=== PATIENT | male | born 1970 | race African-American/Black ===

== ENCOUNTER 2017-03-29 23:54 | Inpatient (IN) | payer MEDICAID ==
[~2017-03-29] VITALS: Ht 185.4 cm; Wt 131.0 kg
[2017-03-30] VITALS (24 sets, daily range): BP systolic 122–195; BP diastolic 54–101; PULSE 98–117; RESP 15–30; TEMP 97.7; Ht 185.4 cm; Wt 131.0 kg
[2017-03-30] MEDS ORDERED: KETOROLAC 30 MG INJ IV STA (03:26)
[2017-03-30] MEDS ORDERED: DIPHENHYDRAMINE 50 MG INJ IV ONE (03:30)
[2017-03-30] MEDS ORDERED: METHYLPREDNISOLONE 125 MG INJ IV ONE (03:30)
--- NOTE | 2017-03-30 03:50 | ERD ---
ER Documentation Chief Complaint Date/Time DATE: 03/30/17 TIME: 03:48 Chief Complaint BIB RA. FROM HOME C/O ST started tonight HPI 46-year-old male presents here in emergency department for complaints of throat discomfort started tonight, patient drank cold water, started to have the throat discomfort afterwards, denies complaining of throat pain, sharp pain as 6 /10 scale, and is accompanied with some difficulty breathing. Patient cannot remember eating something new or different. Patient denies any rash. Patient denies any fever or chills. Patient is not currently on any medication. Complaining of difficulty swallowing ROS All systems reviewed and are negative except as per history of present illness. Medications Home Meds Reported Medications [none] Unknown Strength No Conflict Check 03/30/17 Allergies Allergies: Coded Allergies: No Known Allergy (Unverified , 03/30/17) PMhx/Soc Medical and Surgical Hx: pt denies Medical Hx, pt denies Surgical Hx FmHx Family History: No coronary disease, No diabetes, No other Physical Exam Vitals Vital Signs Date Time Temp Pulse Resp B/P Pulse Ox O2 Delivery O2 Flow Rate FiO2 03/30/17 04:16 97 18 100 Nasal Cannula 2.0 03/30/17 03:34 100 Nasal Cannula 2.0 03/30/17 03:32 Nasal Cannula 2 03/30/17 03:28 95 Room Air 03/29/17 23:58 98.3 99 124 170/95 100 Physical Exam GENERAL: The patient is well developed and appropriate for usual state of health HEENT: Atraumatic. Ears: Normal tympanic membrane, no erythema or bulging. No ear canal swelling. No ear discharge. Nose: normal nasal turbinates, no erythema or swelling. Normal nasal discharge. Throat: oropharynx clear. No tonsillar swelling or tonsillar exudates. No lymphadenopathy. CHEST: Clear to auscultation bilaterally. There are no rales, wheezes or rhonchi. Noted some stridor. HEART: Regular rate and rhythm. No murmurs, clicks, rubs or gallops. No S3 or S4. ABDOMEN: Soft, nontender and nondistended. Good bowel sounds. No rebound or guarding. No gross peritonitis. No gross organomegaly or masses. No Yancey sign or McBurney point tenderness. BACK: No midline or flank tenderness. EXTREMITIES: Equal pulses bilaterally. There is no peripheral clubbing, cyanosis or edema. No focal swelling or erythema. Full range of motion. Grossly neurovascularly intact. NEURO: Alert and oriented. Cranial nerves 2-12 intact. Motor strength in all 4 extremities with 5/5 strength. Sensation grossly intact. Normal speech and gait. SKIN: There is no apparent rash or petechia. The skin is warm and dry. HEMATOLOGIC AND LYMPHATIC: There is no evidence of excessive bruising or lymphedema. No gross cervical, axillary, or inguinal lymphadenopathy. Result Diagram: 03/30/1733903/30/17339 Results 24 hrs Laboratory Tests Test 03/30/17 03:40 White Blood Count 11.110^3/ul Red Blood Count 5.2610^6/ul Hemoglobin 15.5g/dl Hematocrit 46.9% Mean Corpuscular Volume 89.2fl Mean Corpuscular Hemoglobin 29.5pg Mean Corpuscular Hemoglobin Concent 33.0g/dl Red Cell Distribution Width 11.8% Platelet Count 60473^3/UL Mean Platelet Volume 11.4fl Neutrophils % 85.5% Lymphocytes % 6.8% Monocytes % 7.2% Eosinophils % 0.0% Basophils % 0.2% Nucleated Red Blood Cells % 0.0/100WBC Neutrophils # 9.510^3/ul Lymphocytes # 0.810^3/ul Monocytes # 0.810^3/ul Eosinophils # 0.010^3/ul Basophils # 0.010^3/ul Nucleated Red Blood Cells # 0.010^3/ul Sodium Level 141mmol/L Potassium Level 4.0mmol/L Chloride Level 101mmol/L Carbon Dioxide Level 28mmol/L Anion Gap 16 Blood Urea Nitrogen 13mg/dl Creatinine 1.08mg/dl Glucose Level 129mg/dl Calcium Level 9.6mg/dl Total Bilirubin 0.8mg/dl Direct Bilirubin 0.00mg/dl Indirect Bilirubin 0.8mg/dl Aspartate Amino Transf (AST/SGOT) 28IU/L Alanine Aminotransferase (ALT/SGPT) 42IU/L Alkaline Phosphatase 55IU/L Total Protein 8.3g/dl Albumin 4.5g/dl Globulin 3.80g/dl Albumin/Globulin Ratio 1.18 Current Medications Medications (Trade) Dose Ordered Sig/Alex Route PRN Reason Start Time Stop Time Status Last Admin Dose Admin Methylprednisolone Sodium Succinate (Solu-Medrol) 125 mg ONCE ONCE IV 03/30/17 03:30 03/30/17 03:31 DC 03/30/17 03:35 Ketorolac Tromethamine (Toradol) 30 mg ONCE STAT IV 03/30/17 03:26 03/30/17 03:28 DC 03/30/17 03:35 Diphenhydramine HCl (Benadryl) 50 mg ONCE ONCE IV 03/30/17 03:30 03/30/17 03:31 DC 03/30/17 03:35 Epinephrine 0.5 ml 0.5 ml ONCE ONCE HHN 03/30/17 04:00 03/30/17 04:01 DC 03/30/17 04:15 Sodium Chloride (NS) 100 ml @ ud STK-MED ONCE .ROUTE 03/30/17 04:25 03/30/17 04:26 DC 03/30/17 04:45 Iohexol 150 ml 150 ml STK-MED ONCE .ROUTE 03/30/17 04:25 03/30/17 04:26 DC 03/30/17 04:45 Ampicillin Sodium/ Sulbactam Sodium (Unasyn 3gm/NS (Pmx)) 100 ml @ 100 mls/hr ONCE ONCE IVPB 03/30/17 04:30 03/30/17 05:48 DC 03/30/17 04:59 Epinephrine (EPINEPHrine) 0.3 mg ONCE ONCE IM 03/30/17 06:00 03/30/17 06:01 ROCEDURE: XR Chest. CLINICAL INDICATION: Shortness of breath. TECHNIQUE: AP Portable chest. COMPARISON: No pertinent prior examinations were submitted for comparison. FINDINGS: There is mild cardiomegaly. The lungs are clear. The osseous structures are unremarkable. IMPRESSION: No acute findings. RPTAT: HIKT .Elmer Galloway MD, MD Date Time Electronically viewed and signed by .Elmer Galloway MD, on 03/30/2017 05:00 .T/ CC: CUISIA,SANDIE LINO T. [employer] WORKER PROCEDURE: CT Neck with contrast CLINICAL INDICATION: Shortness of breath TECHNIQUE: CT of the neck was performed following the intravenous administration of 100 cc Isovue 300 IV Contrast. Axial images were obtained through the neck with multiplanar reformatted images generated from the axial acquired data. The administered radiation dose was CTDI vol = 11 mGy, DLP = 313 mGy-cm. COMPARISON: No pertinent prior examinations were submitted for comparison. FINDINGS: Skull/Brain: The visualized portions of the brain are grossly unremarkable.The visualized orbits are unremarkable.The visualized paranasal sinuses are well aerated.The bilateral mastoid air cells are within normal limits. Parotid glands: Unremarkable Submandibular glands: Unremarkable Thyroid gland: Unremarkable Vasculature: Unremarkable Lymph nodes: Multiple small lymph nodes are identified in the neck in levels I- V none of which are not pathologically enlarged. The lymph nodes are relatively bilateral and symmetric in distribution. Aerodigestive tract: There is extensive soft tissue within the glottis and epiglottis. This causes marked airway narrowing most prominent at the level of the vocal cords. The subglottic soft tissues and visualize trachea are without definite abnormality. There is no evidence of a drainable fluid collection or discrete mass. Other: The lung apices are unremarkable. Osseous structures: No destructive lytic or blastic osseous lesion is identified. IMPRESSION: Extensive soft tissue swelling of the epiglottis and glottis with marked airway narrowing. Findings are most likely compatible with angioedema. Infection and other causes may be considered although there felt to be less likely. No evidence of discrete mass or drainable fluid collection. No cervical adenopathy. Findings were discussed with SANDIE NAPIER at approximately 03/30/2017 5:08: 11 AM. RPTAT: HIKT .Elmer Galloway MD, MD Date Time Electronically viewed and signed by .Elmer Galloway MD, on 03/30/2017 05:13 .T/ CC: SANDIE LADD NP Procedures/MDM Medical decision-making:. Patient has upper airway swelling consistent with angioedema. I discussed this case with my attending physician, Dr. Mcrae, recommended to give IM Epinephrine 1:1000 0.3 g, also he recommended to order Unasyn to help with possible bacterial infection. Patient was transferred to ER 1 for further management. Possible ENT evaluation. Departure Diagnosis: Primary Impression: Angioedema Encounter type: initial encounter Qualified Code: T78.3XXA - Angioedema, initial encounter Condition: Fair SANDIE LADD NP March 30, 2017 03:50
[2017-03-30 03:52] LABS: ADD SCAN DIFF NO
[2017-03-30 03:57] LABS: BASOPHILS % 0.2 % (0.0-2.0); HEMATOCRIT 46.9 % (42.0-52.0); HEMOGLOBIN 15.5 g/dl (14.0-18.0); LYMPHOCYTES # 0.8 10^3/ul (0.8-2.9); LYMPHOCYTES % 6.8 % (15.0-51.0); MEAN CORPUSCULAR HEMOGLOBIN 29.5 pg (29.0-33.0); MEAN CORPUSCULAR VOLUME 89.2 fl (82.0-101.0); MEAN PLATELET VOLUME 11.4 fl (7.4-10.4); MONOCYTE # 0.8 10^3/ul (0.3-0.9); MONOCYTES % 7.2 % (0.0-11.0); NEUTROPHIL # 9.5 10^3/ul (1.6-7.5); NEUTROPHILS % 85.5 % (39.0-77.0); PLATELET COUNT 203 10^3/UL (140-415); RED BLOOD COUNT 5.26 10^6/ul (4.70-6.10); RED CELL DISTRIBUTION WIDTH 11.8 % (11.5-14.5); WHITE BLOOD COUNT 11.1 10^3/ul (4.8-10.8)
[2017-03-30] MEDS ORDERED: RACEPINEPHRINE 2.25%(NEB) 0.5 ML AMP HHN ONE ×2 (04:00→08:00)
[2017-03-30 04:13] LABS: ALBUMIN 4.5 g/dl (3.3-4.9)
[2017-03-30 04:15] LABS: CREATININE 1.08 mg/dl (0.61-1.24)
[2017-03-30 04:16] LABS: ALBUMIN/GLOBULIN RATIO 1.18; BILIRUBIN,INDIRECT 0.8 mg/dl (0-1.1); BILIRUBIN,TOTAL 0.8 mg/dl (0.2-1.3); TOTAL PROTEIN 8.3 g/dl (6.1-8.1)
[2017-03-30 04:17] LABS: CALCIUM 9.6 mg/dl (8.4-10.2)
[2017-03-30] MEDS ORDERED: IOHEXOL 300MG/ML 150 ML BTL ONE (04:25)
[2017-03-30] MEDS ORDERED: SOD CHLORIDE 0.9% 100 ML ONE (04:25)
[2017-03-30] MEDS ORDERED: AMPICILLIN/SULB 3 GM/NS (PMX) 100 ML IVPB ONE (04:30)
--- NOTE | 2017-03-30 05:35 | RADRPT ---
PROCEDURE: CT Neck with contrast CLINICAL INDICATION: Shortness of breath TECHNIQUE: CT of the neck was performed following the intravenous administration of 100 cc Isovue 300 IV Contrast. Axial images were obtained through the neck with multiplanar reformatted images gen erated from the axial acquired data. The administered radiation dose was CTDI vol = 11 mGy, DLP = 3 13 mGy-cm. COMPARISON: No pertinent prior examinations were submitted for comparison. FINDINGS: Skull/Brain: The visualized portions of the brain are grossly unremarkable.The visualized orbits are unremarkable.The visualized paranasal sinuses are well aerated.The bilateral mastoid air cells are within normal limits. Parotid glands: Unremarkable Submandibular glands: Unremarkable Thyroid gland: Unremarkable Vasculature: Unremarkable Lymph nodes: Multiple small lymph nodes are identified in the neck in levels I-V none of which are n ot pathologically enlarged. The lymph nodes are relatively bilateral and symmetric in distribution. Aerodigestive tract: There is extensive soft tissue within the glottis and epiglottis. This causes m arked airway narrowing most prominent at the level of the vocal cords. The subglottic soft tissues and visualize trachea are without definite abnormality. There is no evidence of a drainable fluid co llection or discrete mass. Other: The lung apices are unremarkable. Osseous structures: No destructive lytic or blastic osseous lesion is identified. IMPRESSION: Extensive soft tissue swelling of the epiglottis and glottis with marked airway narrowing. Findings are most likely compatible with angioedema. Infection and other causes may be considered although t here felt to be less likely. No evidence of discrete mass or drainable fluid collection. No cervical adenopathy. Findings were discussed with SANDIE NAPIER at approximately 03/30/2017 5:08:11 AM. RPTAT: HIKT .Elmer Galloway MD, Date Time Electronically viewed and signed by .Elmer Galloway MD, MD on 03/30/2017 05:13 .T/
--- NOTE | 2017-03-30 05:35 | RADRPT ---
PROCEDURE: XR Chest. CLINICAL INDICATION: Shortness of breath. TECHNIQUE: AP Portable chest. COMPARISON: No pertinent prior examinations were submitted for comparison. FINDINGS: There is mild cardiomegaly. The lungs are clear. The osseous structures are unremarkable. IMPRESSION: No acute findings. RPTAT: HIKT .Elmer Galloway MD, MD Date Time Electronically viewed and signed by .Elmer Galloway MD, MD on 03/30/2017 05:00 .T/
[2017-03-30] MEDS ORDERED: EPINEPHrine 1 MG INJ IM ONE (06:00)
--- NOTE | 2017-03-30 06:25 | QN ---
Documentation Comment The patient was signed out to me by the overnight doctor Dr. Mcrae. He had already spoken with the ENT doctor marketing operations consultant Dr. Foy. Dr. Foy will consult on the patient. I evaluated the patient myself. He does have inspiratory stridor but he is able to protect his own airway at this time and is able to communicate with me by speaking. The patient said that he was having some trouble swallowing. He does have an elevated blood pressure of 200 systolic and therefore the patient will be given labetalol 20 mg IV. I also ordered Decadron 10 mg IV as the patient had been given Solu-Medrol earlier. The patient will be admitted to the intensive care unit for airway monitoring. MATT HOSKINS MD March 30, 2017 06:25
[2017-03-30] MEDS ORDERED: PARACETAMOL PO (06:26)
[2017-03-30] MEDS ORDERED: LABETALOL HCL 20MG INJ IV ONE ×2 (06:30→07:30)
[2017-03-30] MEDS ORDERED: DEXAMETHASONE 10 MG/ML 1 ML INJ IV ONE (06:30)
[2017-03-30] MEDS ORDERED: morphine 2 MG INJ IV PRN (09:30)
[2017-03-30] MEDS ORDERED: LORAZEPAM 2 MG INJ IV PRN (09:30)
[2017-03-30] MEDS ORDERED: ONDANSETRON 4 MG INJ IV PRN (09:30)
[2017-03-30] MEDS ORDERED: hydrALAzine 20 MG INJ IV PRN ×2 (09:30→18:00)
[2017-03-30] MEDS ORDERED: NACL 0.9% 3 ML SYG IV SCH (09:30)
[2017-03-30] MEDS: DEXTROSE 5%-0.45% NACL 1,000 ML IV SCH ×2 (11:14→20:43)
[2017-03-30] MEDS: DIPHENHYDRAMINE 50 MG INJ IV SCH ×2 (11:23→20:12)
[2017-03-30 12:01] LABS: ADD SCAN DIFF NO
[2017-03-30 12:12] LABS: ABNORMAL IP MESSAGE 1; BASOPHILS % 0.1 % (0.0-2.0); HEMATOCRIT 46.2 % (42.0-52.0); LYMPHOCYTES # 0.4 10^3/ul (0.8-2.9); LYMPHOCYTES % 1.9 % (15.0-51.0); MEAN CORPUSCULAR HEMOGLOBIN 28.9 pg (29.0-33.0); MEAN CORPUSCULAR HGB CONC 32.5 g/dl (32.0-37.0); MEAN PLATELET VOLUME 11.4 fl (7.4-10.4); MONOCYTE # 0.8 10^3/ul (0.3-0.9); MONOCYTES % 3.9 % (0.0-11.0); NEUTROPHIL # 18.1 10^3/ul (1.6-7.5); PLATELET COUNT 214 10^3/UL (140-415); RED BLOOD COUNT 5.19 10^6/ul (4.70-6.10); RED CELL DISTRIBUTION WIDTH 11.9 % (11.5-14.5); WHITE BLOOD COUNT 19.5 10^3/ul (4.8-10.8)
[2017-03-30] MEDS: FAMOTIDINE 20 MG INJ IV SCH ×2 (12:15→20:12)
[2017-03-30 12:22] LABS: INR 1.01; PROTIME 13.3 Sec (12.2-14.2)
[2017-03-30 12:26] LABS: ALBUMIN 4.4 g/dl (3.3-4.9); ALBUMIN/GLOBULIN RATIO 1.22; CALCIUM 9.7 mg/dl (8.4-10.2); CREATININE 1.05 mg/dl (0.61-1.24); MAGNESIUM 1.4 mg/dl (1.7-2.5); PHOSPHORUS 3.8 mg/dl (2.5-4.9); POTASSIUM 4.7 mmol/L (3.5-5.1)
[2017-03-30] MEDS ORDERED: LEVALBUTEROL (NEB) 0.63 MG/3 ML AMP HHN SCH (14:00)
[2017-03-30] MEDS: AMPICILLIN/SULB 3 GM/NS (PMX) 100 ML IVPB SCH ×3 (14:01→23:34)
--- NOTE | 2017-03-30 14:24 | RADRPT ---
Vent Rate: 102 bpm RR Interval: 0 msec CA Interval: 172 msec QRS Duration: 94 msec QT Interval: 368 msec QTC Interval: 479 msec P-R-T [place]: 59 - 62 - -50 degrees Sinus tachycardia T wave abnormality, consider inferior ischemia Abnormal ECG Electronically Signed By: Dennis Jimenez [id number]
[2017-03-30] MEDS: DEXAMETHASONE 10 MG/ML 1 ML INJ IV SCH ×3 (14:55→21:23)
[2017-03-30] MEDS ORDERED: MAGNESIUM SULFATE 3 GM in SOD CHLORIDE 0.9% 100 ML IVPB ONE (16:00)
[2017-03-30] MEDS ORDERED: ENALAPRILAT 1.25 MG INJ IV PRN (18:00)
[2017-03-31] VITALS (22 sets, daily range): BP systolic 111–156; BP diastolic 58–95; PULSE 72–112; RESP 14–32
[2017-03-31] MEDS: DEXAMETHASONE 10 MG/ML 1 ML INJ IV SCH ×4 (04:04→21:01)
[2017-03-31] MEDS: DEXTROSE 5%-0.45% NACL 1,000 ML IV SCH ×2 (05:48→16:59)
[2017-03-31] MEDS: AMPICILLIN/SULB 3 GM/NS (PMX) 100 ML IVPB SCH ×4 (05:48→23:58)
--- NOTE | 2017-03-31 06:33 | HP ---
DATE OF ADMISSION: 03/30/2017 TIME OF EVALUATION: 11:00 a.m. REASON FOR ADMISSION: Sore throat and dysphagia. CONSULTATIONS: 1. Dr. Jean Pierre Bautista, Pulmonary. 2. Dr. Cecilia Rosales, ENT. HISTORY OF PRESENT ILLNESS: This is a 46-year-old old male who denied any significant past medical history, who came to the emergency room with a chief complaint of sore throat and dysphagia. The patient started having sore throat from 7:00 p.m. on 03/27/2017. The patient took some acetaminophen tablets and he drank some cold water. The patient started having difficulty with swallowing and difficulty with breathing afterwards. The patient denied eating anything unusual. The patient denied any insect bites. The patient started also feeling short of breath. The patient denied any skin rashes. The patient denies using any VERENICE inhibitors or ARBs. The patient verbalized that he has used acetaminophen before without any significant problems. The patient denied any family history of angioedema. The patient denied any fevers. The patient denied any prior history of tonsillitis or adenoiditis. The patient verbalized that he and his family members are loud snorers. In the emergency room, the patient underwent a CT scan of the neck with contrast that showed extensive soft tissue swelling of the epiglottis and glottis with marked airway narrowing with findings compatible with angioedema. The CT was negative for any discrete mass or drainable fluid collection. There was no cervical lymphadenopathy. The patient had minimal leukocytosis. The patient has a neutrophil count of 85.5%. The patient was treated with IV Solu- Medrol, IV Decadron, racemic epinephrine and IV Unasyn in the emergency room. The patient was also noticed to have elevated blood pressure and tachycardia. The patient was given IV labetalol with improvement in the patient's blood pressure. PAST MEDICAL HISTORY: Denies. PAST SURGICAL HISTORY: Denies. HOME MEDICATIONS: None. ALLERGIES: NO KNOWN DRUG ALLERGIES. SOCIAL HISTORY: The patient lives by himself. Denied any history of tobacco, alcohol or illicit drug use. The patient has been in the [place] since November of 2015. FAMILY HISTORY: Negative for any CAD, diabetes or high blood pressure as per the patient. REVIEW OF SYSTEMS: A 12-point review of systems was negative. REVIEW OF SYSTEMS: Negative other than what is mentioned in history of present illness. PHYSICAL EXAMINATION: VITAL SIGNS: Temperature 97, Pulse 104, respiratory rate 26, blood pressure 156 /71, oxygen saturation 100% on nasal cannula. GENERAL: This is an obese -[place] male lying in bed in mild to moderate respiratory distress. HEENT: Head normocephalic and atraumatic. Eyes: Anicteric sclerae. Conjunctivae clear. ENT: Nasal septum is midline. Oral mucosa is dry. Tongue midline. Unable to visualize pharynx. NECK: Supple. No palpable lymph nodes. RESPIRATORY: Stridor. Bilateral diminished breath sounds. Use of accessory muscles of respiration. CARDIAC: S1, S2, heard. Sinus tachycardia. GASTROINTESTINAL: Abdomen soft, nontender and nondistended. Bowel sounds positive in all 4 quadrants. GENITOURINARY: Deferred. EXTREMITIES: No cyanosis, no clubbing, no edema. Peripheral pulses palpable. NEUROLOGIC: The patient is awake, alert and oriented. Moves all 4 extremities. No focal deficits, has difficulty in talking because of underlying angioedema. LABORATORY AND DIAGNOSTIC DATA: WBC 11.1, hemoglobin 15.5, hematocrit 46.9, platelet count 203, neutrophils 85.5, phosphorus 6.8. Sodium 141, potassium 4.0 , chloride 101, carbon dioxide 28, anion gap 16, BUN 13, creatinine 1.0, glucose 129, calcium 9.6, AST 28, ALT 42, alkaline phosphatase 55, albumin 4.5. Chest x-ray: No acute intrathoracic findings. Soft tissue neck CT. Extensive soft tissue swelling of the epiglottis and glottis with marked airway narrowing. Findings are most likely compatible with angioedema. No evidence of discrete mass or drainable fluid collection. No cervical adenopathy. IMPRESSION: This is a 46-year-old male with no significant past medical history who came to the emergency room with chief complaint of sore throat, dysphagia and dysphonia was found to have evidence of inadequate upper airway, including swelling of the epiglottis and glottis, who was admitted here for further treatment and evaluation. ASSESSMENT AND PLAN: 1. Acute upper airway obstruction, probably angioedema with swollen epiglottis and glottis. The patient will be continued on a tapering dose of IV Decadron. The patient will also be started on histamine 1 and histamine 2 blockade. The etiology of this upper airway obstruction is unclear. ENT consult has been obtained. The patient denied any use of VERENICE inhibitors or family history of any angioedema. The patient will also be started on inhaled bronchodilators. Pulmonary consult will also be called. 2. Hypertension. The patient denies any history of essential hypertension. The patient will be started on p.r.n. antihypertensives for any systolic blood pressure readings greater than 160 mmHg. Plan. The patient will be admitted to inpatient intensive care unit. The patient will be kept n.p.o. The patient will be started on deep venous thrombosis prophylaxis and gastrointestinal prophylaxis. The patient will remain a full code. Activities will be bed rest. The patient will be started on IV fluids. The rest of the patient's management will be based on the clinical course, the results of the diagnostic studies, and input from the consultants. Based on the patient's clinical presentation, he most probably requires at least 2 midnights' stay for further management and evaluation of his clinical presentation. The case and management of this patient was fully discussed with Dr. Hickman. ANISH HICKMAN MD, AM/DONTAE Conf#: [id number] DID#: [id number]
[2017-03-31 06:44] LABS: ADD SCAN DIFF NO
[2017-03-31 06:52] LABS: BASOPHILS % 0.1 % (0.0-2.0); HEMATOCRIT 42.1 % (42.0-52.0); HEMOGLOBIN 13.8 g/dl (14.0-18.0); LYMPHOCYTES # 0.6 10^3/ul (0.8-2.9); LYMPHOCYTES % 3.3 % (15.0-51.0); MEAN CORPUSCULAR HEMOGLOBIN 29.3 pg (29.0-33.0); MEAN CORPUSCULAR HGB CONC 32.8 g/dl (32.0-37.0); MEAN CORPUSCULAR VOLUME 89.4 fl (82.0-101.0); MEAN PLATELET VOLUME 11.4 fl (7.4-10.4); MONOCYTE # 0.7 10^3/ul (0.3-0.9); NEUTROPHIL # 16.9 10^3/ul (1.6-7.5); PLATELET COUNT 211 10^3/UL (140-415); RED BLOOD COUNT 4.71 10^6/ul (4.70-6.10); RED CELL DISTRIBUTION WIDTH 12.1 % (11.5-14.5); WHITE BLOOD COUNT 18.3 10^3/ul (4.8-10.8)
[2017-03-31 07:52] LABS: CHOL/HDL RATIO 3.8 RATIO; MAGNESIUM 2.3 mg/dl (1.7-2.5); PHOSPHORUS 4.5 mg/dl (2.5-4.9)
[2017-03-31 07:53] LABS: ALBUMIN 3.7 g/dl (3.3-4.9); BILIRUBIN,INDIRECT 0.9 mg/dl (0-1.1); BILIRUBIN,TOTAL 0.9 mg/dl (0.2-1.3); CALCIUM 8.9 mg/dl (8.4-10.2); CREATININE 1.11 mg/dl (0.61-1.24); POTASSIUM 4.5 mmol/L (3.5-5.1); TOTAL PROTEIN 7.4 g/dl (6.1-8.1)
--- NOTE | 2017-03-31 09:29 | PN ---
Date/Time of Note Date/Time of Note DATE: 03/31/17 TIME: 09:21 Assessment/Plan VTE Prophylaxis VTE Prophylaxis Intervention: SCD's Lines/Catheters [facility] Peripheral IV Urinary Cath still in place: No Assessment/Plan Assessment/Plan 1. Acute upper airway obstruction, probably angioedema with swollen epiglottis and glottis: improving * continue steroids / abx / NPO / ICU monitor / rapid strep 2. Hypertension * improved , PRN hydralazine for now / oral meds once on a diet 3. Leucocytosis: steroids induced/ monitor Further evaluation and treatment will be based on clinical course Full discussion with care team done. All questions Answered Please also see orders. Subjective 24 Hr Interval Summary Free Text/Dictation Patient seen and examined. feels much better still reporting sore throat Exam/Review of Systems Vital Signs Vitals Vital Signs Date Time Temp Pulse Resp B/P Pulse Ox O2 Delivery O2 Flow Rate FiO2 03/31/17 08:00 Nasal Cannula 2.0 03/31/17 08:00 98.4 94 26 149/67 99 Intake and Output 03/30/17 03/30/17 03/31/17 15:00 23:00 07:00 Intake Total 400 ml 1005.993 ml 1300 ml Output Total 400 ml 750 ml 300 ml Balance 0 ml 255.993 ml 1000 ml Exam GENERAL: This is an obese -[place] male lying in bed in noo distress. HEENT: Head normocephalic and atraumatic. Eyes: Anicteric sclerae. Conjunctivae clear. ENT: Nasal septum is midline. Oral mucosa is dry. Tongue midline. Unable to visualize pharynx. NECK: Supple. No palpable lymph nodes. RESPIRATORY: No more stridor, diminshed breath sounds CARDIAC: S1, S2, heard. no murmurs GASTROINTESTINAL: Abdomen soft, nontender and nondistended. Bowel sounds positive in all 4 quadrants. GENITOURINARY: Deferred. EXTREMITIES: No cyanosis, no clubbing, no edema. Peripheral pulses palpable. NEUROLOGIC: The patient is awake, alert and oriented. Moves all 4 extremities. No focal deficits, has difficulty in talking because of underlying angioedema. Results Result Diagram: 03/31/17 0620 03/31/17 0620 Results 24 hrs Laboratory Tests Test 03/30/17 11:53 03/31/17 06:20 White Blood Count 19.5 #H 18.3 H Red Blood Count 5.19 4.71 Hemoglobin 15.0 13.8 L Hematocrit 46.2 42.1 Mean Corpuscular Volume 89.0 89.4 Mean Corpuscular Hemoglobin 28.9 L 29.3 Mean Corpuscular Hemoglobin Concent 32.5 32.8 Red Cell Distribution Width 11.9 12.1 Platelet Count 214 211 Mean Platelet Volume 11.4 H 11.4 H Neutrophils % 93.0 H 92.0 H Lymphocytes % 1.9 L 3.3 L Monocytes % 3.9 4.0 Eosinophils % 0.0 0.0 Basophils % 0.1 0.1 Nucleated Red Blood Cells % 0.0 0.0 Neutrophils # 18.1 H 16.9 H Lymphocytes # 0.4 L 0.6 L Monocytes # 0.8 0.7 Eosinophils # 0.0 0.0 Basophils # 0.0 0.0 Nucleated Red Blood Cells # 0.0 0.0 Erythrocyte Sedimentation Rate 7 Prothrombin Time 13.3 Prothrombin Time Ratio 1.0 INR International Normalized Ratio 1.01 Activated Partial Thromboplast Time 28.0 Sodium Level 137 138 Potassium Level 4.7 4.5 Chloride Level 101 102 Carbon Dioxide Level 29 30 Anion Gap 12 11 Blood Urea Nitrogen 12 21 H Creatinine 1.05 1.11 Glucose Level 149 140 Hemoglobin A1c 5.0 Calcium Level 9.7 8.9 Phosphorus Level 3.8 4.5 Magnesium Level 1.4 L 2.3 Total Bilirubin 1.0 0.9 Direct Bilirubin 0.00 0.00 Indirect Bilirubin 1.0 0.9 Aspartate Amino Transf (AST/SGOT) 24 18 Alanine Aminotransferase (ALT/SGPT) 43 35 Alkaline Phosphatase 43 41 L C-Reactive Protein 0.9 Total Protein 8.0 7.4 Albumin 4.4 3.7 Globulin 3.60 H 3.70 H Albumin/Globulin Ratio 1.22 1.00 Triglycerides Level 50 Cholesterol Level 163 LDL Cholesterol, Calculated 111 HDL Cholesterol 42 Cholesterol/HDL Ratio 3.8 Medications Medications Current Medications Lorazepam (Ativan) 0.5 mg Q6H PRN IV ANXIETY; Start 03/30/17 at 09:30 Ondansetron HCl (Zofran Inj) 4 mg Q6H PRN IV NAUSEA AND/OR VOMITING; Start at 09:30 Morphine Sulfate (morphine) 2 mg Q4H PRN IV PAIN LEVEL 7-10 Last administered on 03/30/17 11:16; Admin Dose 2 MG; Start 03/30/17 at 09:30 Dexamethasone 10 mg 10 mg Q6H IV Last administered on 03/31/17 04:04; Admin Dose 10 MG; Start 03/30/17 at 09:30 Ampicillin Sodium/ Sulbactam Sodium (Unasyn 3gm/NS (Pmx)) 100 ml @ 100 mls/hr Q6 IVPB Last administered on 03/31/17 05:48; Admin Dose 100 MLS/HR; Start at 12:00 Famotidine (Pepcid Iv) 20 mg BID IV Last administered on 03/30/17 20:12; Admin Dose 20 MG; Start 03/30/17 at 10:00 Diphenhydramine HCl 25 mg 25 mg BID IV Last administered on 03/30/17 20:12; Admin Dose 25 MG; Start 03/30/17 at 10:00 Dextrose/Sodium Chloride (D5-1/2ns) 1,000 ml @ 100 mls/hr Q10H IV Last administered on 03/31/17 05:48; Admin Dose 100 MLS/HR; Start 03/30/17 at 10:30 Hydralazine HCl (Apresoline) 10 mg Q4H PRN IV SBP greather than 160 Last administered on 03/30/17 18:06; Admin Dose 10 MG; Start 03/30/17 at 18:00 Enalaprilat (Vasotec Iv) 1.25 mg Q4H PRN IV SBP greather than 160; Start at 18:00 Procedures Procedures PROCEDURE: CT Neck with contrast CLINICAL INDICATION: Shortness of breath TECHNIQUE: CT of the neck was performed following the intravenous administration of 100 cc Isovue 300 IV Contrast. Axial images were obtained through the neck with multiplanar reformatted images generated from the axial acquired data. The administered radiation dose was CTDI vol = 11 mGy, DLP = 313 mGy-cm. COMPARISON: No pertinent prior examinations were submitted for comparison. FINDINGS: Skull/Brain: The visualized portions of the brain are grossly unremarkable.The visualized orbits are unremarkable.The visualized paranasal sinuses are well aerated.The bilateral mastoid air cells are within normal limits. Parotid glands: Unremarkable Submandibular glands: Unremarkable Thyroid gland: Unremarkable Vasculature: Unremarkable Lymph nodes: Multiple small lymph nodes are identified in the neck in levels I- V none of which are not pathologically enlarged. The lymph nodes are relatively bilateral and symmetric in distribution. Aerodigestive tract: There is extensive soft tissue within the glottis and epiglottis. This causes marked airway narrowing most prominent at the level of the vocal cords. The subglottic soft tissues and visualize trachea are without definite abnormality. There is no evidence of a drainable fluid collection or discrete mass. Other: The lung apices are unremarkable. Osseous structures: No destructive lytic or blastic osseous lesion is identified. IMPRESSION: Extensive soft tissue swelling of the epiglottis and glottis with marked airway narrowing. Findings are most likely compatible with angioedema. Infection and other causes may be considered although there felt to be less likely. No evidence of discrete mass or drainable fluid collection. No cervical adenopathy. Findings were discussed with SANDIE NAPIER at approximately 03/30/2017 5:08: 11 AM. RPTAT: HIKT .Elmer Galloway MD, Date Time Electronically viewed and signed by .Elmer Galloway MD, on 03/30/2017 05:13 .T/ CC: SANDIE LADD [employer] [facility] March 31, 2017 09:29
[2017-03-31] MEDS: DIPHENHYDRAMINE 50 MG INJ IV SCH ×2 (09:38→21:01)
[2017-03-31] MEDS: FAMOTIDINE 20 MG INJ IV SCH ×2 (09:38→21:01)
--- NOTE | 2017-03-31 17:03 | CONS ---
DATE OF ADMISSION: 03/30/2017 DATE OF CONSULTATION: 03/31/2017 TYPE OF CONSULTATION: Pulmonary REASON FOR CONSULTATION: Shortness of breath. Thank you, Dr. Saldivar, for this consultation. HISTORY OF PRESENT ILLNESS: This is a 46-year-old gentleman who presents with a 2-day history of in creasing neck swelling, difficulty swallowing, increasing shortness of breath, [facility], found to have acute glottitis and epiglottitis on CT of the chest, concerning for possib le airway compromise. The patient was subsequently admitted to the intensive care unit for further monitoring. ENT evaluation was performed and demonstrated significant neck swelling. The patient w as kept n.p.o., commenced on steroids. This morning his breathing has significantly improved. PAST MEDICAL HISTORY: . MEDICATIONS: Per chart. ALLERGIES: NONE. SOCIAL HISTORY: Nonsmoker, no alcohol, no history of drug use. FAMILY HISTORY: Noncontributory. REVIEW OF SYSTEMS: A 12-point review of systems negative other than that mentioned above. PHYSICAL EXAMINATION: GENERAL: Well-nourished, well-developed gentleman, comfortable at rest, no acute distress. VITAL SIGNS: Currently afebrile, pulse is 76, blood pressure 148/70, O2 saturation 97% on room air. NECK: Supple. No JVD or lymphadenopathy. CARDIAC: S1, S2, no added sounds or murmurs. CHEST: Diminished air entry bilaterally. ABDOMEN: Soft, nontender. No guarding or rebound. EXTREMITIES: No cyanosis, clubbing, edema. NEUROLOGIC: Grossly intact. No focal deficits. LABORATORY DATA: White count 18.3, hemoglobin 13.8, platelets of 211. BUN 21, creatinine 1.11. IN R 1.01. IMAGING: Chest x-ray was unremarkable. CT of the neck as described above. IMPRESSION AND PLAN: Acute epiglottitis and glottitis with concern for airway compromise, now clini shanta improved with the addition of steroids and antibiotics. The patient to continue on both Decad jeff and Augmentin for now until cleared by ENT, which I anticipate should happen tomorrow. Dictated By: OBED MCALLISTER MD SV/DONTAE Conf#: [id number] DID#: [id number] CC: JUSTINA OWENS;*EndCC*
[2017-04-01] VITALS (24 sets, daily range): BP systolic 109–155; BP diastolic 57–99; PULSE 66–106; RESP 12–32
[2017-04-01] MEDS: DEXTROSE 5%-0.45% NACL 1,000 ML IV SCH ×3 (02:30→15:15)
[2017-04-01] MEDS: DEXAMETHASONE 10 MG/ML 1 ML INJ IV SCH ×4 (03:20→20:55)
[2017-04-01 05:15] LABS: ADD SCAN DIFF NO
[2017-04-01 05:23] LABS: BASOPHILS % 0.1 % (0.0-2.0); HEMATOCRIT 45.7 % (42.0-52.0); HEMOGLOBIN 14.4 g/dl (14.0-18.0); LYMPHOCYTES # 0.6 10^3/ul (0.8-2.9); LYMPHOCYTES % 4.3 % (15.0-51.0); MEAN CORPUSCULAR HEMOGLOBIN 28.9 pg (29.0-33.0); MEAN CORPUSCULAR HGB CONC 31.5 g/dl (32.0-37.0); MEAN CORPUSCULAR VOLUME 91.6 fl (82.0-101.0); MEAN PLATELET VOLUME 11.3 fl (7.4-10.4); MONOCYTE # 0.6 10^3/ul (0.3-0.9); MONOCYTES % 4.1 % (0.0-11.0); NEUTROPHIL # 13.2 10^3/ul (1.6-7.5); NEUTROPHILS % 90.9 % (39.0-77.0); PLATELET COUNT 222 10^3/UL (140-415); RED BLOOD COUNT 4.99 10^6/ul (4.70-6.10); RED CELL DISTRIBUTION WIDTH 12.3 % (11.5-14.5); WHITE BLOOD COUNT 14.6 10^3/ul (4.8-10.8)
[2017-04-01 05:47] LABS: POTASSIUM 4.9 mmol/L (3.5-5.1)
[2017-04-01 05:49] LABS: CREATININE 1.26 mg/dl (0.61-1.24)
[2017-04-01 05:50] LABS: CALCIUM 8.8 mg/dl (8.4-10.2); CHOL/HDL RATIO 5.2 RATIO
[2017-04-01] MEDS: AMPICILLIN/SULB 3 GM/NS (PMX) 100 ML IVPB SCH ×3 (06:05→18:16)
[2017-04-01] MEDS: FAMOTIDINE 20 MG INJ IV SCH ×2 (08:53→20:55)
[2017-04-01] MEDS: DIPHENHYDRAMINE 50 MG INJ IV SCH ×2 (08:53→20:55)
--- NOTE | 2017-04-01 09:50 | CONS ---
Date/Time of Note Date/Time of Note DATE: 04/01/17 TIME: 09:48 Consult Date/Type/Reason Admit Date/Time March 30, 2017 at 07:07 Initial Consult Date Type of Consultation: Pulmonary ICU Subjective Patient states he is feeling a little better today but having blood-tinged sputum no chest pain no palpitations. Objective Vital Signs Date Time Temp Pulse Resp B/P Pulse Ox O2 Delivery O2 Flow Rate FiO2 04/01/17 08:00 84 04/01/17 06:00 12 124/82 98 Nasal Cannula 04/01/17 05:00 98.7 04/01/17 02:22 2.0 27 Intake and Output 03/31/17 03/31/17 04/01/17 15:00 23:00 07:00 Intake Total 1000 ml 700 ml 900 ml Output Total 600 ml 1470 ml 950 ml Balance 400 ml -770 ml -50 ml Exam PHYSICAL EXAMINATION: GENERAL: Well-nourished, well-developed gentleman, comfortable at rest, no acute distress. VITAL SIGNS: As above NECK: Supple. No JVD or lymphadenopathy. CARDIAC: S1, S2, no added sounds or murmurs. CHEST: Diminished air entry bilaterally. ABDOMEN: Soft, nontender. No guarding or rebound. EXTREMITIES: No cyanosis, clubbing, edema. NEUROLOGIC: Grossly intact. No focal deficits. Results/Medications Result Diagram: 04/01/17 0450 04/01/[address] chest No significant abnormalities in the lung parenchyma noted bibasilar mild atelectasis significant upper airway edema Laboratory Tests Test 04/01/17 04:50 White Blood Count 14.6 #H Red Blood Count 4.99 Hemoglobin 14.4 Hematocrit 45.7 Mean Corpuscular Volume 91.6 Mean Corpuscular Hemoglobin 28.9 L Mean Corpuscular Hemoglobin Concent 31.5 L Red Cell Distribution Width 12.3 Platelet Count 222 Mean Platelet Volume 11.3 H Neutrophils % 90.9 H Lymphocytes % 4.3 L Monocytes % 4.1 Eosinophils % 0.0 Basophils % 0.1 Nucleated Red Blood Cells % 0.0 Neutrophils # 13.2 H Lymphocytes # 0.6 L Monocytes # 0.6 Eosinophils # 0.0 Basophils # 0.0 Nucleated Red Blood Cells # 0.0 Sodium Level 141 Potassium Level 4.9 Chloride Level 100 Carbon Dioxide Level 31 Anion Gap 15 Blood Urea Nitrogen 26 H Creatinine 1.26 H Glucose Level 134 Hemoglobin A1c 4.9 Calcium Level 8.8 Triglycerides Level 92 Cholesterol Level 179 LDL Cholesterol, Calculated 127 HDL Cholesterol 34 Cholesterol/HDL Ratio 5.2 Medications Current Medications Lorazepam (Ativan) 0.5 mg Q6H PRN IV ANXIETY; Start 03/30/17 at 09:30 Ondansetron HCl (Zofran Inj) 4 mg Q6H PRN IV NAUSEA AND/OR VOMITING Last administered on 03/31/17 16:59; Admin Dose 4 MG; Start 03/30/17 at 09:30 Morphine Sulfate (morphine) 2 mg Q4H PRN IV PAIN LEVEL 7-10 Last administered on 03/30/17 11:16; Admin Dose 2 MG; Start 03/30/17 at 09:30 Dexamethasone 10 mg 10 mg Q6H IV Last administered on 04/01/17 08:53; Admin Dose 10 MG; Start 03/30/17 at 09:30 Ampicillin Sodium/ Sulbactam Sodium (Unasyn 3gm/NS (Pmx)) 100 ml @ 100 mls/hr Q6 IVPB Last administered on 04/01/17 06:05; Admin Dose 100 MLS/HR; Start at 12:00 Famotidine (Pepcid Iv) 20 mg BID IV Last administered on 04/01/17 08:53; Admin Dose 20 MG; Start 03/30/17 at 10:00 Diphenhydramine HCl 25 mg 25 mg BID IV Last administered on 04/01/17 08:53; Admin Dose 25 MG; Start 03/30/17 at 10:00 Dextrose/Sodium Chloride (D5-1/2ns) 1,000 ml @ 100 mls/hr Q10H IV Last administered on 04/01/17 03:41; Admin Dose 100 MLS/HR; Start 03/30/17 at 10:30 Hydralazine HCl (Apresoline) 10 mg Q4H PRN IV SBP greather than 160 Last administered on 03/30/17 18:06; Admin Dose 10 MG; Start 03/30/17 at 18:00 Enalaprilat (Vasotec Iv) 1.25 mg Q4H PRN IV SBP greather than 160; Start 5/23/ 17 at 18:00 Assessment/Plan Chief Complaint/Hosp Course Assessment 1. Acute epiglottitis with airway compromise. 2. Probable underlying obstructive sleep 3. Hemoptysis likely secondary to upper airway infection. Plan 1. ENT reevaluation. 2. Continue steroids and antibiotics 3. I would keep patient n.p.o. for now. 4. Monitor hemoptysis no need for bronchoscopy at present Disposition Keep in ICU given significant upper airway edema. And hemoptysis. Problems: OBED MCALLISTER MD, [facility] April 01, 2017 09:50
--- NOTE | 2017-04-01 10:48 | RADRPT ---
PROCEDURE: CT Chest without contrast. CLINICAL INDICATION: Hemoptysis TECHNIQUE: CT of the chest was performed on a multi-detector scanner without IV contrast. Coronal and sagittal images were reformatted from the axial data set. One or more of the following dose re duction techniques were used: automated exposure control, adjustment of the mA and/or kV according t o patient size, use of iterative reconstruction technique. CTDI = 16.77 mGy. DLP = 743.69 mGy-cm. COMPARISON: Chest x-ray, 03/30/2017 FINDINGS: Patchy areas of ground-glass opacity are identified bilaterally, greatest in the right lower lobe. No pleural effusion or pneumothorax is identified. There is minimal pulmonary emphysema. The centr al tracheobronchial tree is clear. No pulmonary nodule or mass is identified. The heart size is normal without pericardial effusion. There is no thoracic aortic aneurysm. No me diastinal, hilar, axillary or supraclavicular lymphadenopathy is identified. Visualized portions of the upper abdomen demonstrate no acute abnormality. The surrounding osseous s tructures are remarkable for mild degenerative spondylosis of the spine. No osteolytic or osteoblas tic lesion is detected. IMPRESSION: 1. Areas of pulmonary ground-glass opacity are seen bilaterally, greatest in the right lower lobe, suspicious for pneumonia. 2. There is minimal pulmonary emphysema. 3. No mass or lymphadenopathy is identified. RPTAT: EE .Wicho Ricci MD, MD Date Time Electronically viewed and signed by .Wicho Ricci MD, MD on 04/01/2017 10:48 .R/
--- NOTE | 2017-04-01 12:50 | PN ---
Date/Time of Note Date/Time of Note DATE: 04/01/17 TIME: 12:46 Assessment/Plan VTE Prophylaxis VTE Prophylaxis Intervention: SCD's Lines/Catheters IV C[facility]ter Type (from [facility] Peripheral IV Urinary Cath still in place: No Assessment/Plan Assessment/Plan Assessment 1. Acute upper airway obstruction, probably angioedema thought to be 2/2 acute epiglottitis: improving * continue steroids / abx / NPO / ICU monitor / rapid strep * Patient had slight hemoptysis today, continue current regimen 2. Hypertension * improved , PRN hydralazine for now / oral meds once on a diet 3. Leucocytosis: steroids induced/ monitor Further evaluation and treatment will be based on clinical course Full discussion with care team done. All questions Answered Please also see orders. Subjective 24 Hr Interval Summary Free Text/Dictation looks and feels better but had hemoptysis this am Exam/Review of Systems Vital Signs Vitals Vital Signs Date Time Temp Pulse Resp B/P Pulse Ox O2 Delivery O2 Flow Rate FiO2 04/01/17 09:00 73 21 136/71 96 Nasal Cannula 2.0 04/01/17 08:00 98.5 04/01/17 02:22 27 Intake and Output 03/31/17 03/31/17 04/01/17 15:00 23:00 07:00 Intake Total 1000 ml 700 ml 900 ml Output Total 600 ml 1470 ml 950 ml Balance 400 ml -770 ml -50 ml Exam GENERAL: This is an obese -Citizen Of [place] male lying in bed in noo distress. HEENT: Head normocephalic and atraumatic. Eyes: Anicteric sclerae. Conjunctivae clear. ENT: Nasal septum is midline. Oral mucosa is dry. Tongue midline. Unable to visualize pharynx. NECK: Supple. No palpable lymph nodes. RESPIRATORY: No more stridor, diminished breath sounds CARDIAC: S1, S2, heard. no murmurs GASTROINTESTINAL: Abdomen soft, nontender and nondistended. Bowel sounds positive in all 4 quadrants. GENITOURINARY: Deferred. EXTREMITIES: No cyanosis, no clubbing, no edema. Peripheral pulses palpable. NEUROLOGIC: The patient is awake, alert and oriented. Moves all 4 extremities. No focal deficits, Results Result Diagram: 04/01/17 0450 04/01/17 0450 Results 24 hrs Laboratory Tests Test 04/01/17 04:50 White Blood Count 14.6 #H Red Blood Count 4.99 Hemoglobin 14.4 Hematocrit 45.7 Mean Corpuscular Volume 91.6 Mean Corpuscular Hemoglobin 28.9 L Mean Corpuscular Hemoglobin Concent 31.5 L Red Cell Distribution Width 12.3 Platelet Count 222 Mean Platelet Volume 11.3 H Neutrophils % 90.9 H Lymphocytes % 4.3 L Monocytes % 4.1 Eosinophils % 0.0 Basophils % 0.1 Nucleated Red Blood Cells % 0.0 Neutrophils # 13.2 H Lymphocytes # 0.6 L Monocytes # 0.6 Eosinophils # 0.0 Basophils # 0.0 Nucleated Red Blood Cells # 0.0 Sodium Level 141 Potassium Level 4.9 Chloride Level 100 Carbon Dioxide Level 31 Anion Gap 15 Blood Urea Nitrogen 26 H Creatinine 1.26 H Glucose Level 134 Hemoglobin A1c 4.9 Calcium Level 8.8 Triglycerides Level 92 Cholesterol Level 179 LDL Cholesterol, Calculated 127 HDL Cholesterol 34 Cholesterol/HDL Ratio 5.2 Medications Medications Current Medications Lorazepam (Ativan) 0.5 mg Q6H PRN IV ANXIETY; Start 03/30/17 at 09:30 Ondansetron HCl (Zofran Inj) 4 mg Q6H PRN IV NAUSEA AND/OR VOMITING Last administered on 03/31/17 16:59; Admin Dose 4 MG; Start 03/30/17 at 09:30 Morphine Sulfate (morphine) 2 mg Q4H PRN IV PAIN LEVEL 7-10 Last administered on 03/30/17 11:16; Admin Dose 2 MG; Start 03/30/17 at 09:30 Dexamethasone 10 mg 10 mg Q6H IV Last administered on 04/01/17 08:53; Admin Dose 10 MG; Start 03/30/17 at 09:30 Ampicillin Sodium/ Sulbactam Sodium (Unasyn 3gm/NS (Pmx)) 100 ml @ 100 mls/hr Q6 IVPB Last administered on 04/01/17 06:05; Admin Dose 100 MLS/HR; Start at 12:00 Famotidine (Pepcid Iv) 20 mg BID IV Last administered on 04/01/17 08:53; Admin Dose 20 MG; Start 03/30/17 at 10:00 Diphenhydramine HCl 25 mg 25 mg BID IV Last administered on 04/01/17 08:53; Admin Dose 25 MG; Start 03/30/17 at 10:00 Dextrose/Sodium Chloride (D5-1/2ns) 1,000 ml @ 100 mls/hr Q10H IV Last administered on 04/01/17 03:41; Admin Dose 100 MLS/HR; Start 03/30/17 at 10:30 Hydralazine HCl (Apresoline) 10 mg Q4H PRN IV SBP greather than 160 Last administered on 03/30/17 18:06; Admin Dose 10 MG; Start 03/30/17 at 18:00 Enalaprilat (Vasotec Iv) 1.25 mg Q4H PRN IV SBP greather than 160; Start at 18:00 Procedures Procedures PROCEDURE: CT Chest without contrast. CLINICAL INDICATION: Hemoptysis TECHNIQUE: CT of the chest was performed on a multi-detector scanner without IV contrast. Coronal and sagittal images were reformatted from the axial data set. One or more of the following dose reduction techniques were used: automated exposure control, adjustment of the mA and/or kV according to patient size, use of iterative reconstruction technique. CTDI = 16.77 mGy. DLP = 743.69 mGy-cm. COMPARISON: Chest x-ray, 03/30/2017 FINDINGS: Patchy areas of ground-glass opacity are identified bilaterally, greatest in the right lower lobe. No pleural effusion or pneumothorax is identified. There is minimal pulmonary emphysema. The central tracheobronchial tree is clear. No pulmonary nodule or mass is identified. The heart size is normal without pericardial effusion. There is no thoracic aortic aneurysm. No mediastinal, hilar, axillary or supraclavicular lymphadenopathy is identified. Visualized portions of the upper abdomen demonstrate no acute abnormality. The surrounding osseous structures are remarkable for mild degenerative spondylosis of the spine. No osteolytic or osteoblastic lesion is detected. IMPRESSION: 1. Areas of pulmonary ground-glass opacity are seen bilaterally, greatest in the right lower lobe, suspicious for pneumonia. 2. There is minimal pulmonary emphysema. 3. No mass or lymphadenopathy is identified. RPTAT: EE .Wicho Ricci MD, MD Date Time Electronically viewed and signed by .Wicho Ricci MD, MD on 04/01/2017 10: 48 .R/ CC: OBED MCALLISTER MD, [facility] April 01, 2017 12:50
[2017-04-01] MEDS ORDERED: METOCLOPRAMIDE 10 MG INJ IV PRN (21:00)
[2017-04-02] VITALS (23 sets, daily range): BP systolic 107–147; BP diastolic 57–97; PULSE 52–87; RESP 14–26
[2017-04-02] MEDS: AMPICILLIN/SULB 3 GM/NS (PMX) 100 ML IVPB SCH ×5 (00:13→23:32)
[2017-04-02] MEDS: DEXTROSE 5%-0.45% NACL 1,000 ML IV SCH ×3 (01:32→19:00)
[2017-04-02] MEDS: DEXAMETHASONE 10 MG/ML 1 ML INJ IV SCH ×4 (03:23→21:01)
[2017-04-02] MEDS: DIPHENHYDRAMINE 50 MG INJ IV SCH ×2 (08:46→20:59)
[2017-04-02] MEDS: FAMOTIDINE 20 MG INJ IV SCH ×2 (08:46→20:57)
--- NOTE | 2017-04-02 10:37 | CONS ---
Date/Time of Note Date/Time of Note DATE: 04/02/17 TIME: 10:34 Consult Date/Type/Reason Admit Date/Time March 30, 2017 at 07:07 Type of Consultation: Pulmonary ICU Subjective Comfortable, still with some SOB at night. Improved hemoptysis. Objective Vital Signs Date Time Temp Pulse Resp B/P Pulse Ox O2 Delivery O2 Flow Rate FiO2 04/02/17 08:00 Nasal Cannula 4.0 04/02/17 08:00 73 04/02/17 07:00 20 132/80 89 04/02/17 04:00 98.3 04/02/17 02:39 27 Intake and Output 04/01/17 04/01/17 04/02/17 15:00 23:00 07:00 Intake Total 800 ml 800 ml 1000 ml Output Total 1000 ml 640 ml 840 ml Balance -200 ml 160 ml 160 ml Exam PHYSICAL EXAMINATION: GENERAL: Well-nourished, well-developed gentleman, comfortable at rest, no acute distress. VITAL SIGNS: As above NECK: Supple. No JVD or lymphadenopathy. CARDIAC: S1, S2, no added sounds or murmurs. CHEST: Diminished air entry bilaterally. ABDOMEN: Soft, nontender. No guarding or rebound. EXTREMITIES: No cyanosis, clubbing, edema. NEUROLOGIC: Grossly intact. No focal deficits. Results/Medications Result Diagram: 04/01/17 04504/01/17 045 Medications Current Medications Lorazepam (Ativan) 0.5 mg Q6H PRN IV ANXIETY; Start 03/30/17 at 09:30 Ondansetron HCl (Zofran Inj) 4 mg Q6H PRN IV NAUSEA AND/OR VOMITING Last administered on 03/31/17 16:59; Admin Dose 4 MG; Start 03/30/17 at 09:30 Morphine Sulfate (morphine) 2 mg Q4H PRN IV PAIN LEVEL 7-10 Last administered on 03/30/17 11:16; Admin Dose 2 MG; Start 03/30/17 at 09:30 Dexamethasone 10 mg 10 mg Q6H IV Last administered on 04/02/17 09:33; Admin Dose 10 MG; Start 03/30/17 at 09:30 Ampicillin Sodium/ Sulbactam Sodium (Unasyn 3gm/NS (Pmx)) 100 ml @ 100 mls/hr Q6 IVPB Last administered on 04/02/17 05:33; Admin Dose 100 MLS/HR; Start at 12:00 Famotidine (Pepcid Iv) 20 mg BID IV Last administered on 04/02/17 08:46; Admin Dose 20 MG; Start 03/30/17 at 10:00 Diphenhydramine HCl 25 mg 25 mg BID IV Last administered on 04/02/17 08:46; Admin Dose 25 MG; Start 03/30/17 at 10:00 Dextrose/Sodium Chloride (D5-1/2ns) 1,000 ml @ 100 mls/hr Q10H IV Last administered on 04/02/17 01:32; Admin Dose 100 MLS/HR; Start 03/30/17 at 10:30 Hydralazine HCl (Apresoline) 10 mg Q4H PRN IV SBP greather than 160 Last administered on 03/30/17 18:06; Admin Dose 10 MG; Start 03/30/17 at 18:00 Enalaprilat (Vasotec Iv) 1.25 mg Q4H PRN IV SBP greather than 160; Start at 18:00 Metoclopramide HCl (Reglan) 10 mg Q6H PRN IV HICCUPS AND/OR GI MOTILITY Last administered on 04/01/17 21:05; Admin Dose 10 MG; Start 04/01/17 at 21:00 Assessment/Plan Chief Complaint/Hosp Course Assessment 1. Acute epiglottitis with airway compromise, improved. 2. Probable underlying obstructive sleep 3. Hemoptysis likely secondary to upper airway infection. Plan 1. D/W with ENT ok to advance to clear liquid diet. 2. Continue steroids and antibiotics 3. continue dvt prophylaxis. 4. Monitor hemoptysis no need for bronchoscopy at present Disposition transfer to tele / [place]. Problems: OBED MCALLISTER MD, [facility] April 02, 2017 10:37
--- NOTE | 2017-04-02 16:46 | PN ---
Date/Time of Note Date/Time of Note DATE: 04/02/17 TIME: 16:44 Assessment/Plan VTE Prophylaxis VTE Prophylaxis Intervention: SCD's Lines/Catheters IV Catheter Type (from Nrs): Peripheral IV Urinary Cath still in place: No Assessment/Plan Assessment/Plan 1. Acute epiglottitis with airway compromise. 2. Probable underlying obstructive sleep 3. Hemoptysis likely secondary to upper airway infection. Plan: IV abx Unasyn IV decadron for epiglottitis with airway compromise waiting for ENT to follow up today if ok with ENT transfer to telemetry floor IVF D5/12 NS at 100 cc/hr once pt gets staretd on PO diet, then d/c IV fluids SCD for DVT prophylaxis Subjective 24 Hr Interval Summary Free Text/Dictation doing better, less SOB, waiting for ENT to see him before going to Floor Exam/Review of Systems Vital Signs Vitals Vital Signs Date Time Temp Pulse Resp B/P Pulse Ox O2 Delivery O2 Flow Rate FiO2 04/02/17 16:00 61 04/02/17 14:00 25 119/78 99 Nasal Cannula 4.0 04/02/17 12:00 98.6 04/02/17 02:39 27 Intake and Output 04/01/17 04/01/17 04/02/17 15:00 23:00 07:00 Intake Total 800 ml 800 ml 1000 ml Output Total 1000 ml 640 ml 840 ml Balance -200 ml 160 ml 160 ml Exam GENERAL: Well-nourished, well-developed gentleman, comfortable at rest, no acute distress. VITAL SIGNS: As above NECK: Supple. No JVD or lymphadenopathy. CARDIAC: S1, S2, no added sounds or murmurs. CHEST: Diminished air entry bilaterally. ABDOMEN: Soft, nontender. No guarding or rebound. EXTREMITIES: No cyanosis, clubbing, edema. NEUROLOGIC: Grossly intact. No focal deficits. Results Result Diagram: 04/01/1744904/01/17449 Medications Medications Current Medications Lorazepam (Ativan) 0.5 mg Q6H PRN IV ANXIETY; Start 03/30/17 at 09:30 Ondansetron HCl (Zofran Inj) 4 mg Q6H PRN IV NAUSEA AND/OR VOMITING Last administered on 03/31/17t 16:59; Admin Dose 4 MG; Start 03/30/17 at 09:30 Morphine Sulfate (morphine) 2 mg Q4H PRN IV PAIN LEVEL 7-10 Last administered on 03/30/17 11:16; Admin Dose 2 MG; Start 03/30/17 at 09:30 Dexamethasone 10 mg 10 mg Q6H IV Last administered on 04/02/17 15:19; Admin Dose 10 MG; Start 03/30/17 at 09:30 Ampicillin Sodium/ Sulbactam Sodium (Unasyn 3gm/NS (Pmx)) 100 ml @ 100 mls/hr Q6 IVPB Last administered on 04/02/17 11:28; Admin Dose 100 MLS/HR; Start at 12:00 Famotidine (Pepcid Iv) 20 mg BID IV Last administered on 04/02/17 08:46; Admin Dose 20 MG; Start 03/30/17 at 10:00 Diphenhydramine HCl 25 mg 25 mg BID IV Last administered on 04/02/17 08:46; Admin Dose 25 MG; Start 03/30/17 at 10:00 Dextrose/Sodium Chloride (D5-1/2ns) 1,000 ml @ 100 mls/hr Q10H IV Last administered on 04/02/17 11:27; Admin Dose 100 MLS/HR; Start 03/30/17 at 10:30 Hydralazine HCl (Apresoline) 10 mg Q4H PRN IV SBP greather than 160 Last administered on 03/30/17 18:06; Admin Dose 10 MG; Start 03/30/17 at 18:00 Enalaprilat (Vasotec Iv) 1.25 mg Q4H PRN IV SBP greather than 160; Start at 18:00 Metoclopramide HCl (Reglan) 10 mg Q6H PRN IV HICCUPS AND/OR GI MOTILITY Last administered on 04/01/17 21:05; Admin Dose 10 MG; Start 04/01/17 at 21:00 ROSSY MURGUIA MD April 02, 2017 16:46
[2017-04-03] VITALS (15 sets, daily range): BP systolic 102–145; BP diastolic 65–94; PULSE 52–87; RESP 12–26
[2017-04-03] MEDS: DEXAMETHASONE 10 MG/ML 1 ML INJ IV SCH ×3 (03:01→15:09)
[2017-04-03] MEDS: DEXTROSE 5%-0.45% NACL 1,000 ML IV SCH (03:52)
[2017-04-03] MEDS: AMPICILLIN/SULB 3 GM/NS (PMX) 100 ML IVPB SCH ×2 (05:30→13:01)
[2017-04-03 06:09] LABS: ADD SCAN DIFF NO
[2017-04-03 06:13] LABS: BASOPHILS % 0.1 % (0.0-2.0); HEMOGLOBIN 15.1 g/dl (14.0-18.0); LYMPHOCYTES # 0.7 10^3/ul (0.8-2.9); LYMPHOCYTES % 7.3 % (15.0-51.0); MEAN CORPUSCULAR HEMOGLOBIN 29.3 pg (29.0-33.0); MEAN CORPUSCULAR HGB CONC 32.8 g/dl (32.0-37.0); MEAN CORPUSCULAR VOLUME 89.3 fl (82.0-101.0); MEAN PLATELET VOLUME 10.8 fl (7.4-10.4); MONOCYTE # 0.4 10^3/ul (0.3-0.9); MONOCYTES % 4.2 % (0.0-11.0); NEUTROPHILS % 87.5 % (39.0-77.0); PLATELET COUNT 257 10^3/UL (140-415); RED BLOOD COUNT 5.15 10^6/ul (4.70-6.10); RED CELL DISTRIBUTION WIDTH 11.4 % (11.5-14.5); WHITE BLOOD COUNT 9.1 10^3/ul (4.8-10.8)
[2017-04-03 06:46] LABS: POTASSIUM 4.7 mmol/L (3.5-5.1)
[2017-04-03 06:49] LABS: CALCIUM 8.4 mg/dl (8.4-10.2); CREATININE 1.13 mg/dl (0.61-1.24); PHOSPHORUS 4.2 mg/dl (2.5-4.9)
[2017-04-03 06:50] LABS: MAGNESIUM 2.3 mg/dl (1.7-2.5)
[2017-04-03] MEDS: DIPHENHYDRAMINE 50 MG INJ IV SCH (09:51)
[2017-04-03] MEDS: FAMOTIDINE 20 MG INJ IV SCH (09:51)
--- NOTE | 2017-04-03 11:26 | CONS ---
Date/Time of Note Date/Time of Note DATE: 04/03/17 TIME: 11:24 Consult Date/Type/Reason Admit Date/Time March 30, 2017 at 07:07 Initial Consult Date Type of Consultation: Pulmonary ICU Subjective No events. No stridor. Objective Vital Signs Date Time Temp Pulse Resp B/P Pulse Ox O2 Delivery O2 Flow Rate FiO2 04/03/17 11:00 64 12 124/74 96 Room Air 04/03/17 08:00 98.3 04/03/17 06:00 4.0 04/02/17 02:39 27 Intake and Output 04/02/17 04/02/17 04/03/17 15:00 23:00 07:00 Intake Total 1050 ml 1240 ml 800 ml Output Total 540 ml 820 ml 550 ml Balance 510 ml 420 ml 250 ml Exam CARDIAC: S1, S2, no added sounds or murmurs. CHEST: Clear ABDOMEN: Soft, nontender. No guarding or rebound. EXTREMITIES: No cyanosis, clubbing, edema. NEUROLOGIC: Grossly intact. No focal deficits. Results/Medications Result Diagram: 04/03/17 0600 04/03/17 0600 Results 24 hrs Laboratory Tests Test 04/03/17 06:00 White Blood Count 9.1 # Red Blood Count 5.15 Hemoglobin 15.1 Hematocrit 46.0 Mean Corpuscular Volume 89.3 Mean Corpuscular Hemoglobin 29.3 Mean Corpuscular Hemoglobin Concent 32.8 Red Cell Distribution Width 11.4 L Platelet Count 257 Mean Platelet Volume 10.8 H Neutrophils % 87.5 H Lymphocytes % 7.3 L Monocytes % 4.2 Eosinophils % 0.0 Basophils % 0.1 Nucleated Red Blood Cells % 0.0 Neutrophils # 8.0 H Lymphocytes # 0.7 L Monocytes # 0.4 Eosinophils # 0.0 Basophils # 0.0 Nucleated Red Blood Cells # 0.0 Sodium Level 140 Potassium Level 4.7 Chloride Level 100 Carbon Dioxide Level 32 H Anion Gap 13 Blood Urea Nitrogen 25 H Creatinine 1.13 Glucose Level 125 Calcium Level 8.4 Phosphorus Level 4.2 Magnesium Level 2.3 Medications Current Medications Lorazepam (Ativan) 0.5 mg Q6H PRN IV ANXIETY; Start 03/30/17 at 09:30 Ondansetron HCl (Zofran Inj) 4 mg Q6H PRN IV NAUSEA AND/OR VOMITING Last administered on 03/31/17 16:59; Admin Dose 4 MG; Start 03/30/17 at 09:30 Morphine Sulfate (morphine) 2 mg Q4H PRN IV PAIN LEVEL 7-10 Last administered on 03/30/17 11:16; Admin Dose 2 MG; Start 03/30/17 at 09:30 Dexamethasone 10 mg 10 mg Q6H IV Last administered on 04/03/17 09:51; Admin Dose 10 MG; Start 03/30/17 at 09:30 Ampicillin Sodium/ Sulbactam Sodium (Unasyn 3gm/NS (Pmx)) 100 ml @ 100 mls/hr Q6 IVPB Last administered on 04/03/17 05:30; Admin Dose 100 MLS/HR; Start at 12:00 Famotidine (Pepcid Iv) 20 mg BID IV Last administered on 04/03/17 09:51; Admin Dose 20 MG; Start 03/30/17 at 10:00 Diphenhydramine HCl (Benadryl) 25 mg BID IV Last administered on 04/03/17 09: 51; Admin Dose 25 MG; Start 03/30/17 at 10:00 Hydralazine HCl (Apresoline) 10 mg Q4H PRN IV SBP greather than 160 Last administered on 03/30/17 18:06; Admin Dose 10 MG; Start 03/30/17 at 18:00 Enalaprilat (Vasotec Iv) 1.25 mg Q4H PRN IV SBP greather than 160; Start at 18:00 Metoclopramide HCl (Reglan) 10 mg Q6H PRN IV HICCUPS AND/OR GI MOTILITY Last administered on 04/01/17 21:05; Admin Dose 10 MG; Start 04/01/17 at 21:00 Assessment/Plan Additional Assessment/Plan IMP: 1. Acute epiglottitis with airway compromise, improved. 2. Probable underlying obstructive sleep 3. Hemoptysis likely secondary to upper airway infection. RECS: 1. Taper steroids 2. Change abx to augmentin PO 3. Can move out of ICU TREVA VOSS MD April 03, 2017 11:26
--- NOTE | 2017-04-03 11:29 | CONS ---
DATE OF ADMISSION: 03/30/2017 DATE OF CONSULTATION: 03/30/2017 TYPE OF CONSULTATION: Head and neck surgery. REASON FOR CONSULTATION: Epiglottitis. HISTORY OF PRESENT ILLNESS: The patient is a 46-year-old gentleman who presents to the [facility] room with a 1-day history of severe dysphagia and hoarseness. The patient has no remarkable p ast medical history. The patient presents to the emergency room with possible epiglottitis. Consul tation was obtained. PAST MEDICAL HISTORY: Unremarkable. PAST SURGICAL HISTORY: Unremarkable. MEDICATIONS CURRENTLY ON ADMISSION: None. ALLERGIES: NO KNOWN DRUG ALLERGIES. PHYSICAL EXAMINATION: GENERAL: A well-developed male with some mild respiratory distress. HEENT: Oropharynx and cavity is clear. NECK: Supple, full range of motion. CHEST: Clear to auscultation. ASSESSMENT AND PLAN: Possible epiglottitis. Bedside flexible fiberoptic laryngoscopy was performed demonstrating a completely enlarged epiglottis consistent with epiglottitis. The patient is recomm ended to maintain n.p.o., start Unasyn antibiotics, a steroid Solu-Medrol or dexamethasone administr ation, oxygen supplementation, racemic epinephrine and close observation in the ICU. Dictated By: LIANET JAMESON/DONTAE Conf#: [id number] DID#: [id number]
--- NOTE | 2017-04-03 13:14 | PDOCDIS ---
Discharge Instructions CONDITION Patient Condition: Good HOME CARE INSTRUCTIONS: Diet Instructions: Regular ACTIVITY: Activity Restrictions: No Restrictions FOLLOW UP/APPOINTMENTS Appointments F/U WITH YOUR PCP IN 1-2 WEEKS ABIMBOLA MACARIO April 03, 2017 13:14
--- NOTE | 2017-04-04 05:52 | DS ---
DATE OF ADMISSION: 03/30/2017 DATE OF DISCHARGE: 04/03/2017 DISCHARGE DIAGNOSES: 1. Acute ____ with airway compromise, now resolved. 2. Possible sleep apnea. Outpatient sleep study. 3. Hemoptysis, possibly secondary to upper airway infection. HOSPITAL COURSE: The patient is a 46-year-old male who has no medical history. The patient came in with the chief complaint of sore throat and dysphagia. He had a soft tissue neck CT that showed ex tensive soft tissue swelling of the epiglottis and glottis with marked airway narrowing. CT suggest ed possible angioedema. The patient received IV Decadron, started on ____ I and II blockers. The p atient denied use of any VERENICE inhibitors. He was seen by ENT, by Dr. Foy as well as pulmonology. The patient did have a bedside flexible fiberoptic laryngoscopy performed demonstrating a complete ly enlarged epiglottis consistent with epiglottitis. The patient was kept n.p.o. He was started on Unasyn antibiotics and was continued on steroids. The patient was given racemic epinephrine and wa s observed in the ICU. The patient did improve with treatment and he was ultimately able to tolerat e a p.o. diet. Note, the patient did have leukocytosis which resolved. He never had any fevers. H is rapid Strep was negative. MRSA was also negative. The patient was felt to be stable for dischar . On the date of discharge ____ stable. He had no acute complaints. Questions were answered. CONDITION ON DISCHARGE: Stable. DISPOSITION: To home. MEDICATIONS: No medications were prescribed. The patient to continue his home medications. FOLLOWUP: The patient is to follow up with PCP in 1 to 2 weeks. ____ coordinating discharge of patient. Dictated By: ABIMBOLA MACARIO MD BS/NTS Conf#: [id number] DID#: [id number]
== END 2017-04-03 15:00 | disposition home or self-care (01) | DRG 153 ==
LOC: FTE 23:54 → ICU 03-30 07:07
PROVIDERS: ADMIT Hospitalist; ATTEND Hospitalist
PROC: 0CJS8ZZ Inspection of Larynx, Via Natural or Artificial Opening Endoscopic (ICD-10-PCS; principal; 2017-03-30)
DX: J05.11 Acute epiglottitis with obstruction (principal); R04.2 Hemoptysis; I10 Essential (primary) hypertension; T78.3XXA Angioneurotic edema, initial encounter; G47.33 Obstructive sleep apnea (adult) (pediatric)
CPT/HCPCS: 70491; 71010; 71250; 80048; 80053; 80061; 82652; 82785; 83036; 83735; 84100; 84439; 84443; 85025; 85610; 85651; 85730; 86140; 87081; 87880; 93005; 94640; 94664; J0295; J0360; J1100; J1200; J1885; J2270; J2405; J2765; J2930; J3475; J7042; Q9967